=== PATIENT | female | born 1990 | race Caucasian/White ===

== ENCOUNTER → 2023-11-17 10:21 | Outpatient (REF) | payer OTHER, SELFPAY | LOC: WDC 10:21 | PROVIDERS: ATTENDING PHYSICIAN Obstetrics & Gynecology | DX: N63.23 Unspecified lump in the left breast, lower outer quadrant (principal); Z80.3 Family history of malignant neoplasm of breast | CPT/HCPCS: 76642; 77062; 77066 ==